=== PATIENT | male | born 1955 | race Caucasian/White ===

== ENCOUNTER 2019-04-30 11:22 | Inpatient (IN) | payer BC ==
[~2019-04-30] VITALS: Ht 175.3 cm; Wt 85.5 kg
[~2019-04-30 11:22] MED LIST: CEFAZOLIN 1,000 MG ONE; DEXAMETHASONE 4 MG/ML, 1ML ONE; EPINEPHRINE 1 MG/ML, 1ML ONE; KETOROLAC 60 MG/2 ML ONE; No meds per pt.; ONDANSETRON 2MG/ML, 2ML ONE; PROPOFOL 10 MG/ML, 20ML ONE; ROCURONIUM 10MG/ML,5ML ONE; ROPIvacaine/PF 0.5%, 30 ML ONE; SODIUM CHLORIDE 0.9% 50 ML ONE; SUCCINYLCHOLINE 20 MG/ML, 10ML ONE; TRANEXAMIC ACID 100 MG/ML, 10ML ONE; VANCOMYCIN 1,000 MG ONE
[2019-04-30] MEDS ORDERED: GABAPENTIN 300 MG CAPSULE PO ONE (11:44)
[2019-04-30] MEDS ORDERED: LACTATED RINGERS 1,000 ML IV SCH (11:44)
[2019-04-30] MEDS ORDERED: ACETAMINOPHEN 500 MG TABLET PO STA (11:44)
[2019-04-30] MEDS ORDERED: MIDAZOLAM 1 MG/ML, 2ML ONE (12:43)
[2019-04-30] MEDS ORDERED: FENTANYL PF 250 MCG/5ML ONE (12:43)
[2019-04-30] MEDS ORDERED: PROMETHAZINE 25 MG/ML, 1ML IV PRN (14:00)
[2019-04-30] MEDS ORDERED: ONDANSETRON 2MG/ML, 2ML IVPush PRN (14:00)
[2019-04-30] MEDS ORDERED: LABETALOL 5MG/ML, 20ML IV PRN (14:00)
[2019-04-30] MEDS ORDERED: hydrALAzine 20 MG/ML, 1ML IV PRN (14:00)
[2019-04-30] MEDS ORDERED: MEPERIDINE/PF 25MG/0.5ML IVPush PRN (14:00)
[2019-04-30] MEDS ORDERED: HYDROmorphone 1 MG/ML, 1ML INJ IV PRN (14:00)
[2019-04-30] MEDS ORDERED: METOCLOPRAMIDE 5 MG/ML, 2ML IV PRN (14:00)
[2019-04-30] MEDS ORDERED: KETOROLAC 30 MG/1 ML IV PRN (14:00)
[2019-04-30] MEDS ORDERED: OXYcodone 5 MG/5 ML ORAL.SOL UDC PO PRN (14:00)
[2019-04-30] MEDS ORDERED: ALBUTEROL SULFATE 2.5 MG/3 ML NPPB PRN (14:00)
[2019-04-30] MEDS ORDERED: DIAZEPAM 5 MG/ML, 2ML IV PRN ×2 (14:00)
[2019-04-30] MEDS ORDERED: FENTANYL PF 100 MCG/2ML IV PRN (14:00)
[2019-04-30] MEDS ORDERED: OXYcodone 5 MG/5 ML ORAL.SOL UDC ONE (15:57)
[2019-04-30] MEDS ORDERED: FENTANYL PF 100 MCG/2ML ONE (15:57)
[2019-04-30] MEDS ORDERED: HYDROcodone/APAP 5/325 TABLET PO PRN (16:00)
[2019-04-30] MEDS ORDERED: DIPHENHYDRAMINE 25 MG CAPSULE PO PRN (16:00)
[2019-04-30] MEDS ORDERED: ZOLPIDEM 5MG TABLET PO PRN (16:00)
[2019-04-30] MEDS ORDERED: TRANEXAMIC ACID 1,000 MG in SODIUM CHLORIDE 0.9% 100 ML IV ONE (16:00)
[2019-04-30] MEDS ORDERED: ONDANSETRON 4 MG TABLET PO PRN (16:00)
[2019-04-30] MEDS ORDERED: SENNA/DOCUSATE TABLET PO PRN (16:00)
[2019-04-30] MEDS ORDERED: ACETAMINOPHEN 650 MG/20.3 ML UDC PO PRN (16:00)
[2019-04-30] MEDS ORDERED: BISACODYL 10 MG SUPP PR PRN (16:00)
[2019-04-30] MEDS ORDERED: ONDANSETRON 2MG/ML, 2ML IV PRN (16:00)
[2019-04-30] MEDS ORDERED: MAGNESIUM HYDROXIDE 8%, 30ML UDC PO PRN (16:00)
[2019-04-30] MEDS: ASPIRIN 81 MG TABLET EC PO SCH (17:36)
[2019-04-30 18:57] VITALS: BP 116/81
[2019-04-30] MEDS: OXYcodone IR 5MG TABLET PO PRN (19:57)
[2019-04-30] MEDS: NS + 20MEQ KCL 1,000 ML IV SCH (19:57)
[2019-04-30] MEDS: DOCUSATE 100 MG CAPSULE PO SCH (19:57)
[2019-04-30] MEDS: CEFAZOLIN PMX 2GM/50ML 50 ML IVPB SCH (20:48)
[2019-05-01] MEDS: OXYcodone IR 5MG TABLET PO PRN ×4 (00:01→11:22)
[2019-05-01 00:03] VITALS: BP 100/65
[2019-05-01 03:40] VITALS: BP 101/53
[2019-05-01] MEDS: CEFAZOLIN PMX 2GM/50ML 50 ML IVPB SCH (04:41)
[2019-05-01] MEDS: NS + 20MEQ KCL 1,000 ML IV SCH (04:41)
[2019-05-01] MEDS: ASPIRIN 81 MG TABLET EC PO SCH (05:17)
[2019-05-01] MEDS ORDERED: DEXAMETHASONE 4 MG/ML, 1ML IVPush SCH (06:00)
[2019-05-01 07:08] VITALS: BP 98/56
[2019-05-01] MEDS: DOCUSATE 100 MG CAPSULE PO SCH (08:10)
[2019-05-01] MEDS ORDERED: OXYC5CAP2 PO (09:15)
[2019-05-01] MEDS ORDERED: TRAM50TA2 PO (09:16)
[2019-05-01] MEDS ORDERED: MELO7.5T31 PO (09:16)
== END 2019-05-01 11:28 | disposition home or self-care (01) | DRG 462 ==
LOC: ORIP 11:22 → 4NE 16:43 → DCLOUNGE 05-01 11:12
PROVIDERS: ADMIT Orthopaedic Surgery; ATTEND Orthopaedic Surgery
PROC: 0SR906A Replacement of Right Hip Joint with Oxidized Zirconium on Polyethylene Synthetic Substitute, Uncemented, Open Approach (ICD-10-PCS; 2019-04-30)
PROC: 0SRB06A Replacement of Left Hip Joint with Oxidized Zirconium on Polyethylene Synthetic Substitute, Uncemented, Open Approach (ICD-10-PCS; principal; 2019-04-30 14:30)
DX: M16.0 Bilateral primary osteoarthritis of hip (principal)
CPT/HCPCS: 36415; 72170; 73523; 76000; 85014; 85018; 87081; 87147; C1713; G0378; J0171; J0690; J1100; J1885; J2250; J2405; J2704; J2795; J3010; J3370; J3480; C1776; J0330; J7120